=== PATIENT | male | born 1960 | race Caucasian/White ===

== ENCOUNTER 2019-07-18 18:28 | Emergency (ER) | payer BC ==
[2019-07-18] MEDS: Aspirin 81 MG Tab.Chew PO ONE (18:37)
[2019-07-18] MEDS: Sodium Chloride 0.9% 10 ML Syringe FLUSH PRN (19:16)
[2019-07-18] MEDS: Aspirin 81 MG Tab.Chew ONE (19:16)
--- NOTE | 2019-07-18 19:32 | EDM.PDOC ---
ED HPI GENERAL MEDICAL PROBLEM - General Chief Complaint: General Stated Complaint: CHEST PAIN Time Seen by Provider: 07/18/19 19:10 Source of Information: Reports: Patient History Limitations: Reports: No Limitations - History of Present Illness INITIAL COMMENTS - FREE TEXT/NARRATIVE: Patient is a 59-year-old gentleman who presents to the emergency department this evening complaining of chest pain. Patient states he has had intermittent episodes over the past 5 days. On most occasions this is at rest. However, today he was at the gym when he felt the discomfort. He decided to present to the emergency department. Pain is described as midsternal, epigastric, squeezing, and lasts for a few minutes and resolves spontaneously. Patient denies family history of early cardiac , shortness of breath, GERD, abdominal pain, nausea, vomiting, diarrhea, lower extremity edema, or similar symptoms previously Onset: Gradual Duration: Day(s): Location: Reports: Chest Quality: Reports: Ache Severity: Mild Improves with: Reports: Other (Spontaneously resolves) Worsens with: Reports: None Context: Reports: Other (At rest) Associated Symptoms: Reports: Chest Pain. Denies: Cough, Fever/Chills, Nausea/ Vomiting, Shortness of Breath, Syncope - Related Data Allergies Allergy/AdvReac Type Severity Reaction Status Date / Time tree nut Allergy Difficulty Verified 07/18/19 19:03 Swallowing Home Meds: Home Meds metFORMIN HCl [Metformin HCl ER] 500 mg PO DAILY 07/18/19 [History] ED ROS GENERAL - Review of Systems Review Of Systems: Comprehensive ROS is negative, except as noted in HPI. Constitutional: Reports: No Symptoms HEENT: Reports: No Symptoms Respiratory: Reports: No Symptoms Cardiovascular: Reports: Chest Pain Endocrine: Reports: No Symptoms GI/Abdominal: Reports: No Symptoms : Reports: No Symptoms Musculoskeletal: Reports: No Symptoms Skin: Reports: No Symptoms Neurological: Reports: No Symptoms Psychiatric: Reports: No Symptoms Hematologic/Lymphatic: Reports: No Symptoms Immunologic: Reports: No Symptoms ED EXAM, GENERAL - Physical Exam Exam: See Below Exam Limited By: No Limitations General Appearance: Alert, WD/WN, No Apparent Distress Eye Exam: Bilateral Eye: Normal Inspection Nose: Normal Inspection, Normal Mucosa, No Blood Throat/Mouth: Normal Inspection, Normal Oropharynx, No Airway Compromise Head: Atraumatic, Normocephalic Neck: Normal Inspection, Supple, Non-Tender, Full Range of Motion Respiratory/Chest: No Respiratory Distress, Lungs Clear, Normal Breath Sounds, No Accessory Muscle Use, Chest Non-Tender Cardiovascular: Normal Peripheral Pulses, Regular Rate, Rhythm, No Murmur, No Rub GI/Abdominal: Normal Bowel Sounds, Soft, Non-Tender Back Exam: Normal Inspection. No: CVA Tenderness (L), CVA Tenderness (R) Extremities: Normal Inspection, No Pedal Edema Neurological: Alert, Oriented, Normal Cognition Psychiatric: Normal Affect, Normal Mood Skin Exam: Warm, Dry, Intact, Normal Color, No Rash Lymphatic: No Adenopathy EKG INTERPRETATION EKG Date: 07/18/19 Time: 18:35 Rhythm: NSR Rate (Beats/Min): 75 [place]: Normal P-Wave: Present QRS: Normal ST-T: Normal QT: Normal Comparison: NA - No Prior EKG Course - Vital Signs Last Recorded V/S: Last Vital Signs Temp 98.3 F 07/18/19 18:30 Pulse 136 H 07/18/19 18:30 Resp 19 07/18/19 18:30 BP 136/73 07/18/19 18:30 Pulse Ox 97 07/18/19 18:30 - Orders/Labs/Meds Orders: Active Orders 24 hr Category Date Time Status EKG Documentation Completion [RC] ASDIRECTED Care 07/18/19 18:50 Active Peripheral IV Care [RC] . DIRECTED Care 07/18/19 18:50 Active Sodium Chloride 0.9% [Saline Flush] Med 07/18/19 18:49 Active 10 ml FLUSH Q8HR PRN Peripheral IV Insertion Adult [OM.PC] Routine Oth 07/18/19 18:49 Ordered EKG 12 Lead [EK] Routine Ther 07/18/19 18:49 Ordered Medication Orders Sodium Chloride (Saline Flush) 10 ml FLUSH Q8HR PRN PRN Reason: keep vein open Last Admin: 07/18/19 19:16 Dose: 10 ml Labs: Laboratory Tests 07/18/19 07/18/19 Range/Units 19:12 19:12 WBC 5.62 (5.00-10.00) 10^3/uL RBC 4.83 (4.50-6.00) 10^6/uL Hgb 15.1 (13.0-17.0) g/dL Hct 44.8 (40.0-52.0) % MCV 92.8 H (82.0-92.0) fL MCH 31.3 H (27.0-31.0) pg MCHC 33.7 (32.0-36.0) g/dL RDW 12.0 (11.5-14.5) % Plt Count 165 (150-400) 10^3/uL MPV 9.5 (7.4-10.4) fL Immature Gran % (Auto) 0.7 (0.0-5.0) % Neut % (Auto) 61.4 (50.0-70.0) % Lymph % (Auto) 22.8 (20.0-40.0) % [place] % (Auto) 8.9 H (2.0-8.0) % Eos % (Auto) 5.5 H (1.0-3.0) % Baso % (Auto) 0.7 (0.0-1.0) % Immature Gran # (Auto) 0.04 (0.00-0.50) 10^3/uL Neut # (Auto) 3.45 (2.50-7.00) 10^3/uL Lymph # (Auto) 1.28 (1.00-4.00) 10^3/uL [place] # (Auto) 0.50 (0.10-0.80) 10^3/uL Eos # (Auto) 0.31 H (0.10-0.30) 10^3/uL Baso # (Auto) 0.04 (0.00-0.10) 10^3/uL Sodium 142 (136-145) mmol/L Potassium 4.4 (3.3-5.3) mmol/L Chloride 103 (98-115) mmol/L Carbon Dioxide 27.7 (21.0-32.0) mmol/L Anion Gap 15.7 H (5-15) mmol/L BUN 25 (6-25) mg/dL Creatinine 1.29 H (0.51-1.17) mg/dL Est Cr Clr Drug Dosing 65.67 mL/min Estimated GFR (MDRD) 57 mL/min Glucose 129 H (75 - 99) mg/dL Calcium 9.4 (8.7-10.3) mg/dL Total Bilirubin 0.4 (0.2-1.0) mg/dL AST 17 (15-37) U/L ALT 27 (12-78) U/L Alkaline Phosphatase 67 (46-116) IU/L Troponin I < 0.04 (0.00-0.070) ng/mL Total Protein 6.5 (6.4-8.2) g/dL Albumin 3.67 (3.00-4.80) g/dL Lipase 91 (73-393) U/L Meds: Medications Generic Name Dose Route Start Last Admin Trade Name Freq PRN Reason Stop Dose Admin Sodium Chloride 10 ml 07/18/19 18:49 07/18/19 19:16 Saline Flush FLUSH 10 ml Q8HR PRN Administration keep vein open Discontinued Medications Generic Name Dose Route Start Last Admin Trade Name Freq PRN Reason Stop Dose Admin Aspirin Confirm 07/18/19 18:36 07/18/19 19:16 Aspirin Administered 07/18/19 18:37 Not Given Dose 324 mg .ROUTE .STK-MED ONE Aspirin 324 mg 07/18/19 18:49 07/18/19 18:37 Aspirin PO 07/18/19 18:50 324 mg ONETIME ONE Administration - Radiology Interpretation Free Text/Narrative:: Chest x-ray shows no acute cardiopulmonary process - Re-Assessments/Exams Free Text/Narrative Re-Assessment/Exam: 07/18/19 20:00 Patient afebrile, vital signs stable, no chest pain while in the ER. Lab work, EKG, chest x-ray all normal. Discussed with the patient and concern for further cardiac workup. Patient will follow-up next 1-2 days with [facility] to schedule cardiology appointment. Departure - Departure Time of Disposition: 20:01 Disposition: Home, Self-Care 01 Condition: Good Clinical Impression: Atypical chest pain - Discharge Information Instructions: Nonspecific Chest Pain, [id number] Referrals: Jostin Goddard PA-C [Primary Care Provider] - Forms: ED Department Discharge Additional Instructions: Follow-up at [facility] in 1-2 days. Return to emergency department sooner if symptoms continue or worsen. - My Orders Last 24 Hours: My Active Orders 07/18/19 18:49 Sodium Chloride 0.9% [Saline Flush] 10 ml FLUSH Q8HR PRN Peripheral IV Insertion Adult [OM.PC] Routine EKG 12 Lead [EK] Routine 12/09/19 18:50 EKG Documentation Completion [RC] ASDIRECTED Peripheral IV Care [RC] . DIRECTED - Assessment/Plan Last 24 Hours: My Active Orders 07/18/19 18:49 Sodium Chloride 0.9% [Saline Flush] 10 ml FLUSH Q8HR PRN Peripheral IV Insertion Adult [OM.PC] Routine EKG 12 Lead [EK] Routine 07/18/19 18:50 EKG Documentation Completion [RC] ASDIRECTED Peripheral IV Care [RC] . DIRECTED Assessment:: Atypical chest pain Plan: Follow-up with PCP
--- NOTE | 2019-07-18 19:40 | CR ---
[id number] RAD/RAD Chest PA And Lateral EXAM: FRONTAL AND LATERAL CHEST INDICATION: CHEST PAIN COMPARISON: None. DISCUSSION: The heart and lungs are normal in appearance. IMPRESSION: 1. Negative exam. Brooks Patrick MD 07/18/19 1938 Thank you for allowing us to participate in the care of your patient.
[2019-07-18 19:49] LABS: ANION GAP 15.7 mmol/L (5-15); CHLORIDE,CL 103 mmol/L (98-115); SODIUM,NA 142 mmol/L (136-145)
== END 2019-07-18 20:15 | disposition home or self-care (01) ==
LOC: KA.ED 18:28
DX: R07.2 Precordial pain (principal); Z91.018 Allergy to other foods
CPT/HCPCS: 36415; 71046; 80053; 83690; 84484; 85025; 93005; 99285; A9270

== ENCOUNTER 2024-07-06 15:01 | Emergency (ER) | payer BC ==
[2024-07-06 15:31] LABS: URIC ACID 6.3 mg/dL (2.6-7.2)
[2024-07-06 15:34] LABS: C-REACTIVE PROTEIN < 0.50 mg/dL (0.00-0.50)
[2024-07-06] MEDS: Gabapentin 300 MG Cap PO ONE (15:42)
== END 2024-07-06 16:05 | disposition home or self-care (01) ==
LOC: KA.ED 15:01
DX: E11.40 Type 2 diabetes mellitus with diabetic neuropathy, unspecified (principal); Z79.899 Other long term (current) drug therapy; Z79.84 Long term (current) use of oral hypoglycemic drugs; Z91.018 Allergy to other foods
CPT/HCPCS: 36415; 73610-LT; 82947; 84550; 86140; 99283; A9270-GY